=== PATIENT | female | born 1955 | race Caucasian/White ===

== ENCOUNTER 2018-08-23 16:35 | Emergency (ER) | payer MEDICARE ==
[2018-08-23 19:05] VITALS: BP 156/94
[2018-08-23] MEDS ORDERED: Amoxicillin/Clavulanate TAB* 875 MG PO ONE (19:15)
--- NOTE | 2018-08-23 19:19 | UC ---
Throat Pain/Nasal Rikki HPI - HPI Summary HPI Summary: 5 days of worsening sinus pain sore throat ear aches and upper jaw pain all on the right ---no fevers - History of Current Complaint Chief Complaint: UCGeneralIllness Stated Complaint: SINUS COMPLAINT Time Seen by Provider: 08/23/18 18:55 Hx Obtained From: Patient ?: No Onset/Duration: Sudden Onset, Lasting Days - 5, Worse Since - getting worse daily Pain Intensity: 5 Pain Scale Used: 0-10 Numeric Cough: None Associated Signs & Symptoms: Positive: Sinus Discomfort, Nasal Discharge - Allergies/Home Medications Allergies/Adverse Reactions: Allergies Allergy/AdvReac Type Severity Reaction Status Date / Time sulfamethoxazole Allergy Hives Verified 08/23/18 19:01 [From Bactrim] trimethoprim [From Bactrim] Allergy Hives Verified 08/23/18 19:01 Home Medications: Home Medications Ibuprofen 400 mg PO Q8H 08/23/18 [History Confirmed 08/23/18] PMH/Surg Hx/FS Hx/Imm Hx Previously Healthy: No GI/ History: Gastroesophageal Reflux, Other Other GI/ History: ulcerative colitis - Surgical History Surgical History: Yes Surgery Procedure, Year, and Place: . HEMMRHOIDECTOMY. BLADDER REPAIR X2. BLADDER SLING. LEFT BREAST BIOPSY - Family History Known Family History: Positive: None - Social History Occupation: Retired Lives: With Family Alcohol Use: Occasionally Substance Use Type: None Smoking Status (MU): Never Smoked Tobacco Review of Systems Constitutional: Negative Skin: Negative Eyes: Negative ENT: Sore Throat, Ear Ache, Nasal Discharge, Sinus Congestion, Sinus Pain/ Tenderness Respiratory: Negative Cardiovascular: Negative Gastrointestinal: Negative Genitourinary: Negative Motor: Negative Neurovascular: Negative Musculoskeletal: Negative Neurological: Negative Psychological: Negative Is Patient Immunocompromised?: No All Other Systems Reviewed And Are Negative: Yes Physical Exam Triage Information Reviewed: Yes Appearance: Well-Appearing, No Pain Distress, Well-Nourished Vital Signs: Initial Vital Signs Temp 97.9 F 08/23/18 18:57 Pulse 89 08/23/18 18:57 Resp 17 08/23/18 18:57 BP 156/94 08/23/18 18:57 Pulse Ox 100 08/23/18 18:57 Vital Signs Reviewed: Yes Eye Exam: Normal Eyes: Positive: Conjunctiva Clear ENT Exam: Normal ENT: Positive: Normal ENT inspection, Hearing grossly normal, Pharynx normal, Nasal congestion, TMs normal, Sinus tenderness. Negative: Trismus, Muffled voice, Hoarse voice, Dental tenderness Dental Exam: Normal Neck exam: Normal Neck: Positive: Supple, Nontender, No Lymphadenopathy Respiratory Exam: Normal Respiratory: Positive: Chest non-tender, No respiratory distress, No accessory muscle use Cardiovascular Exam: Normal Cardiovascular: Positive: RRR, Pulses Normal, Brisk Capillary Refill Musculoskeletal Exam: Normal Musculoskeletal: Positive: Strength Intact, ROM Intact, No Edema Neurological Exam: Normal Neurological: Positive: Alert, Muscle Tone Normal Psychological Exam: Normal Skin Exam: Normal Throat Pain/Nasal Course/Dx - Course Assessment/Plan: follow blood pressure with pcp in 1-2 weeks, mucinex d, flonase , augmentin probiotic, increase fluids tylenol/ibuprofen for pain - Differential Dx/Diagnosis Provider Diagnoses: Acute rhinosinusits, elevated blood pressure with dx of hypertension Discharge - Sign-Out/Discharge Documenting (check all that apply): Patient Departure All imaging exams completed and their final reports reviewed: No Studies - Discharge Plan Condition: Stable Disposition: HOME Prescriptions: Amoxicillin/Clavulanate TAB* [Augmentin TAB 875*] 875 mg PO BID #19 tab Fluticasone NASAL SPRAY 50MCG* [Flonase NASAL SPRAY 50MCG*] 2 spray BOTH NARES DAILY #1 btl Patient Education Materials: Decongestant/Expectorant (By mouth), Rhinosinusitis (ED), Hypertension (ED), How to Use Nasal [place] (ED) Referrals: Saundra Anna MD [Primary Care Provider] - 2 Weeks - Billing Disposition and Condition Condition: STABLE Disposition: Home
== END 2018-08-23 19:29 | disposition home or self-care (01) ==
LOC: UCCORT 16:35
DX: J01.90 Acute sinusitis, unspecified (principal); R03.0 Elevated blood-pressure reading, without diagnosis of hypertension; Z88.1 Allergy status to other antibiotic agents
CPT/HCPCS: 99212; A9270-GY; G0463

== ENCOUNTER 2018-09-10 10:25 | Emergency (ER) | payer MEDICARE ==
[2018-09-10 11:39] VITALS: BP 157/84
--- NOTE | 2018-09-10 11:58 | UC ---
Respiratory Complaint HPI - HPI Summary HPI Summary: Pt evaluated at on 08/23 with sinus congestion, PND and cough. Pt was treated with flonase and augmentin. Pt states had persistent cough - other sx improved. Pt states x 2 days has developed discomfort right upper shoulder. Pain increases with movement and deep breath. Pt states with deep breath has burning pain right lung and cuases coughing. Pt took Motrin last night with resolution of pain. Pt did not take any meds today. No sob. no cp, abd pain. no n/v. Pt states has previously had plurisy and this feels same pt is immunocompromised with Pt's medications reviewed this visit - History of Current Complaint Chief Complaint: UCRespiratory Stated Complaint: RECHECK UPPER RESPIRATORY Time Seen by Provider: 09/10/18 11:46 Hx Obtained From: Patient, Medical Records ?: No Pain Intensity: 5 - Allergies/Home Medications Allergies/Adverse Reactions: Allergies Allergy/AdvReac Type Severity Reaction Status Date / Time sulfamethoxazole Allergy Hives Verified 09/10/18 11:36 [From Bactrim] trimethoprim [From Bactrim] Allergy Hives Verified 09/10/18 11:36 Home Medications: Home Medications Benzonatate CAP* [Tessalon 100 MG CAP*] 100 - 200 mg PO TID PRN 09/10/18 [ History Confirmed 09/10/18] PMH/Surg Hx/FS Hx/Imm Hx Previously Healthy: Yes - Surgical History Surgical History: Yes Surgery Procedure, Year, and Place: . HEMMRHOIDECTOMY. BLADDER REPAIR X2. BLADDER SLING. LEFT BREAST BIOPSY - Family History Known Family History: Positive: Other - noncontributory - Social History Occupation: Retired Alcohol Use: Occasionally Substance Use Type: None Smoking Status (MU): Never Smoked Tobacco Review of Systems Constitutional: Negative Skin: Negative ENT: Nasal Discharge Respiratory: Cough, Other - right sided lung pain with deep breath Motor: Other - right upper posterior shoulder pain All Other Systems Reviewed And Are Negative: Yes Physical Exam - Summary Physical Exam Summary: Vital Signs Reviewed: Yes A+Ox3, no distress, pleasant Eyes: Conjunctiva Clear, LYNETTE. EOM intact and full ENT: Hearing grossly normal TM x 2 clear, turbinate mildly inflammed, + PND, mmoist, uvula midline, no exudate, no erythema Neck: Positive: Supple no discomfort Respiratory: Positive: No respiratory distress, No accessory muscle use + pt with scattered wheeze no splinting No rub, rhonchi Cardiovascular: RRR nl s1, s2 no m/r CBT <2 sec abd soft + BS nt/nd no guarding, no distension Musculoskeletal Exam: right posterior shoulder pt with discomfort with direct palp. + full AROM with discomfort right upper shoulder with flexion of neck. + TTP with direct palp right posterior shoulder, superior edge of scapula and ROM - pt states reproducible pain. No pain with palpation of ribs. BRODERICK x 4 without difficulty Strength Intact, ROM Intact Neurological: Positive: Alert, + sensation throughout Psychological: Positive: Normal Response To Family Skin: Positive: no rash, no ecchymosis, no lesions or suspicin for shingles. no pain with gentle palp Triage Information Reviewed: Yes Vital Signs: Initial Vital Signs Temp 97.3 F 09/10/18 11:34 Pulse 85 09/10/18 11:34 Resp 15 09/10/18 11:34 BP 157/84 09/10/18 11:34 Pulse Ox 99 09/10/18 11:34 UC Diagnostic Evaluation - Laboratory O2 Sat by Pulse Oximetry: 99 - Radiology Radiology Interpretation Completed By: Radiologist - Patient Name: RACHEL FUNK Medical Record#: [id number] Re-Evaluation - Re-Evaluation First Eval Change: Improved - cxr neg wheezing resolved states breathing feels better recommend motrin/apap heat stretch mdi return precatuions Pt's BP elevated - recommend pcp f/u Respiratory Course/Dx - Course Course Of Treatment: pt with reprofucible right posterior upper shoulder. Pain with ROM and direct palpation. Pt reports mild discomfort with deep inspiration. + scatteed wheeze. will check cxr. pt declined analgesia. neb. reassess - Differential Dx/Diagnosis Provider Diagnoses: pleurisy. right posterior shoulder pain Discharge - Sign-Out/Discharge Documenting (check all that apply): Patient Departure All imaging exams completed and their final reports reviewed: Yes - Discharge Plan Condition: Stable Disposition: HOME Prescriptions: Albuterol HFA INHALER* [Ventolin HFA Inhaler*] 1 puff INH Q4H PRN #1 mdi PRN Reason: wheeze Patient Education Materials: Pleurisy (ED) Referrals: Saundra Anna MD [Primary Care Provider] - Additional Instructions: - humidify the air in the room where you sleep - alterante ibuprofen (advil, Motrin) and tylenol every 3 hours as needed for pain. Ibuprofen 400mg every 6-8 hours with food. - apply heat to your area of discomfort - use your inhaler, 2puffs every 4 hours, today and tomorrow - then every 4 hours as needed - contact your doctor to schedule a follow-up appointment early next week. If your symptoms worsen, you become short of breath, chest pain or pressure or other concerns it is recommended you go to the emergency department for further evaluation - Billing Disposition and Condition Condition: STABLE Disposition: Home
--- NOTE | 2018-09-10 12:23 | RAD ---
HISTORY: right sided discomfort, cough, wheeze COMPARISONS: None VIEWS: 4: Frontal dual-energy and lateral views of the chest. FINDINGS: CARDIOMEDIASTINAL SILHOUETTE: The cardiomediastinal silhouette is normal. KIMBERLY: The kimberly are normal. PLEURA: The costophrenic angles are sharp. No pleural abnormalities are noted. LUNG PARENCHYMA: The lungs are clear. ABDOMEN: The upper abdomen is clear. There is no subphrenic gas. BONES AND SOFT TISSUES: No bone or soft tissue abnormalities are noted. OTHER: None. IMPRESSION: NO ACTIVE CARDIOPULMONARY DISEASE.
== END 2018-09-10 12:38 | disposition home or self-care (01) ==
LOC: UCCORT 10:25
DX: R09.1 Pleurisy (principal); M25.511 Pain in right shoulder; Z88.1 Allergy status to other antibiotic agents; Z96.0 Presence of urogenital implants
CPT/HCPCS: 71046; 99212; G0463